=== PATIENT | female | born 1985 | race African-American/Black ===

== ENCOUNTER 2017-06-25 10:18 | Emergency (ER) | payer MEDICAID ==
[~2017-06-25] VITALS: Ht 162.6 cm; Wt 127.1 kg
[~2017-06-25 10:18] MED LIST: IBUP-44 PO
[2017-06-25 10:28] VITALS: BP 151/119
--- NOTE | 2017-06-25 10:33 | NUR ---
PT AA&OX4, EVEN AND STEADY GAIT; RR EVEN/UNLABORED; PT TO LOBBY AWAITING OPEN BED.
[2017-06-25 11:55] LABS: BASOPHILS # (AUTO) 0.1 K/uL (0.00-0.22); BASOPHILS % (AUTO) 2.6 % (0.0-2.0); EOSINOPHILS # (AUTO) 0.1 K/uL (0-0.4); EOSINOPHILS % (AUTO) 2.3 % (0.0-4.0); HEMATOCRIT 38.4 % (36-48); HEMOGLOBIN 12.4 g/dL (12.0-16.0); LYMPHOCYTES # (AUTO) 1.3 K/uL (2.5-16.5); LYMPHOCYTES % (AUTO) 24.8 % (20.5-51.1); MEAN CORPUSCULAR HEMOGLOBIN 26 pg (27-31); MEAN CORPUSCULAR HGB CONC 32 g/dL (33-37); MEAN CORPUSCULAR VOLUME 81 fL (80-94); MONOCYTES # (AUTO) 0.5 K/uL (0.8-1.0); NEUTROPHILS # (AUTO) 3.3 K/uL (1.8-7.7); NEUTROPHILS % (AUTO) 60.3 % (42.2-75.2); PLATELET COUNT (AUTO) 288 K/uL (140-450); RED BLOOD CELL COUNT(AUTO) 4.76 MIL/uL (4.20-5.40); RED CELL DISTRIBUTION WIDTH 15.2 % (11.6-13.7); WHITE BLOOD COUNT (AUTO) 5.3 K/uL (4.8-10.8)
--- NOTE | 2017-06-25 15:08 | NUR ---
PATIENT TO BED 10 AT THIS TIME,
[2017-06-25] MEDS ORDERED: KETOROLAC 60 MG/2 ML VIAL IM ONE (15:20)
--- NOTE | 2017-06-25 15:26 | NUR ---
PATIENT BIB SELF C/O PELVIC PAIN X TODAY. PT STATES " I HAVE FIBROIDS AND IT'S THE SAME PAIN".PT STATES PAIN RADIATES TO THE BACK AND COMES AND GO; SKIN IS PINK/WARM/DRY; AAOX4 WITH EVEN AND STEADY GAIT; LUNGS CLEAR BL; HR EVEN AND REGULAR; PT DENIES ANY FEVER, CP, SOB, OR COUGH AT THIS TIME; PATIENT STATES PAIN OF 10/10 AT THIS TIME;PATIENT POSITIONED FOR COMFORT; HOB ELEVATED; BEDRAILS UP X2; BED DOWN. ER MD MADE AWARE OF PT STATUS.
[2017-06-25 16:23] VITALS: BP 148/92
== END 2017-06-25 16:23 | disposition home or self-care (01) ==
LOC: MED 10:18
DX: D25.9 Leiomyoma of uterus, unspecified (principal); I10 Essential (primary) hypertension; F17.200 Nicotine dependence, unspecified, uncomplicated
CPT/HCPCS: 36415; 81002; 81025; 84702; 85025; 86900; 86901; 96372; 99284; J1885

== ENCOUNTER 2018-02-21 15:29 | Emergency (ER) | payer MEDICAID ==
[~2018-02-21] VITALS: Ht 162.6 cm; Wt 133.8 kg
[2018-02-21 15:35] VITALS: BP 174/91
--- NOTE | 2018-02-21 15:42 | NUR ---
PT AMBULATED TO ER LOBBY WAITING FOR OPEN ER BED.
--- NOTE | 2018-02-21 16:14 | NUR ---
PT WHEELCHAIRED TO ED ROOM 3 REPORT TO MARIPOSA AYALA. URINE BEING OBTAINED.
--- NOTE | 2018-02-21 16:20 | NUR ---
32/F PRESENT TO ER C/O 04/04 CONSTANT PELVIC PAIN x TODAY PROGRESSIVELY GETTING WORSE. PT STATES SHE WAS DIAGNOSED UTERINE FIBROIDS 3 YEARS AGO AND IT HAS BEEN GETTING WORSE LATELY, STATES IT REALLY GOT BAD THIS MORNING. PT DENIES N/V/D BUT HAS CONSTIPATION. PT IS AOX4 TO PERSON, PLACE, SITUATION, AND TIME. RR ARE EVEN AND UNLABORED. PATIENT CHANGED INTO GOWN. AWAITING ER MD BOBO. ALL NEEDS MET AT THIS TIME. WILL CONTINUE TO MONITOR.
--- NOTE | 2018-02-21 16:20 | NUR ---
ALSO PATIENT DENIES ANY VAGINAL BLEEDING, VAGINAL DISCHARGE, OR URINARY COMPLAINTS.
[2018-02-21] MEDS ORDERED: KETOROLAC 30 MG/ML VIAL IVP ONE (17:55)
[2018-02-21] MEDS ORDERED: ONDANSETRON 4 MG/2 ML VIAL IVP ONE (17:55)
[2018-02-21] MEDS ORDERED: MORPHINE SULFATE 10 MG/ML SYR IVP ONE (17:55)
[2018-02-21] MEDS ORDERED: NACL 0.9% 1,000 ML IV SCH (17:55)
--- NOTE | 2018-02-21 17:56 | NUR ---
notified er md patient is crying due to pain. awaiting new orders.
[2018-02-21] MEDS ORDERED: MORPHINE SULFATE 4 MG/ML SYR ONE (18:12)
[2018-02-21 18:20] LABS: BASOPHILS # (AUTO) 0.1 K/uL (0.00-0.22); BASOPHILS % (AUTO) 0.7 % (0.0-2.0); EOSINOPHILS # (AUTO) 0.1 K/uL (0-0.4); EOSINOPHILS % (AUTO) 1.4 % (0.0-4.0); HEMATOCRIT 39.2 % (36-48); HEMOGLOBIN 12.6 g/dL (12.0-16.0); LYMPHOCYTES # (AUTO) 2.2 K/uL (2.5-16.5); MEAN CORPUSCULAR HEMOGLOBIN 26 pg (27-31); MEAN CORPUSCULAR HGB CONC 32 g/dL (33-37); MONOCYTES # (AUTO) 0.7 K/uL (0.8-1.0); MONOCYTES % (AUTO) 10.3 % (1.7-9.3); NEUTROPHILS # (AUTO) 4.1 K/uL (1.8-7.7); NEUTROPHILS % (AUTO) 57.6 % (42.2-75.2); PLATELET COUNT (AUTO) 297 K/uL (140-450); RED BLOOD CELL COUNT(AUTO) 4.85 MIL/uL (4.20-5.40); RED CELL DISTRIBUTION WIDTH 15.8 % (11.6-13.7); WHITE BLOOD COUNT (AUTO) 7.2 K/uL (4.8-10.8)
--- NOTE | 2018-02-21 18:30 | NUR ---
pt to ct evelio seymour accompanied by radiology specialist
--- NOTE | 2018-02-21 18:35 | NUR ---
PT RETURNED FROM CT VIA GURNEY BACK TO RM 3 WITHOUT INCIDENT
[2018-02-21 18:38] LABS: APPEARANCE,URINE CLEAR (CLEAR); BILIRUBIN,URINE NEGATIVE (NEGATIVE); BLOOD, URINE NEGATIVE (NEGATIVE); COLOR,URINE YELLOW (YELLOW); LEUKOCYTE ESTERASE ,URINE NEGATIVE (NEGATIVE); NITRITE, URINE NEGATIVE (NEGATIVE); UGLUCOSE NEGATIVE (NEGATIVE)
[2018-02-21 18:44] LABS: ANION GAP 9.2 (8-16); CARBON DIOXIDE 29.7 mmol/L (21-32); CREATININE 0.7 mg/dL (0.6-1.3); POTASSIUM 3.9 mmol/L (3.5-5.1)
[2018-02-21 18:50] LABS: ALBUMIN 3.6 g/dL (3.4-5.0); TOTAL BILIRUBIN 0.4 mg/dL (0.0-1.0)
--- NOTE | 2018-02-21 19:10 | NUR ---
Pt report given to Sharri AYALA. Transfer of care at this time.
--- NOTE | 2018-02-21 19:15 | NUR ---
PT LAYING IN BED, VSS, PT STATES SHE HAS PAIN RELIEF. WILL CONTINUE TO MONITOR.
--- NOTE | 2018-02-21 20:00 | NUR ---
PT TO BE DISCHARGED BUT UNABLE TO FIND A RIDE AT THIS TIME, HARINDER CALL HOUSE SUP. FOR TAXI VOUCHER.
--- NOTE | 2018-02-21 20:19 | NUR ---
PT MOVED TO CHAIR E.
--- NOTE | 2018-02-21 20:41 | NUR ---
Patient discharged with v/s stable. Written and verbal after care instructions given and explained. Patient alert, oriented and verbalized understanding of instructions. Ambulatory with steady gait w/ cane. All questions addressed prior to discharge. ID band removed. Patient advised to follow up with PMD. Rx of norco, naprosyn given. Patient educated on indication of medication including possible reaction and side effects. Opportunity to ask questions provided and answered. pt to wait in chair e until taxi arrives.
[2018-02-21 20:42] VITALS: BP 143/80
--- NOTE | 2018-02-21 20:47 | NUR ---
PT REQUESTS TO GO TO CAR TO GET ITEMS BEFORE SHE LEAVES, EMT TO ESCORT HER TO CAR.
--- NOTE | 2018-02-21 20:50 | NUR ---
PT REQUESTS TO WAIT IN LOBBY, WILL CONTINUE TO MONITOR.
--- NOTE | 2018-02-21 20:50 | NUR ---
REENA NURSE NOTIFIED OF PT MOVING TO ER LOBBY, WILL CONTINUE TO MONITOR.
--- NOTE | 2018-02-21 21:00 | NUR ---
PT IN ER LOBBY, ON PHONE, PT TO WAIT FOR TAXI.
--- NOTE | 2018-02-21 21:40 | NUR ---
PT NOT FOUND IN ER LOBBY OR OUTSIDE, LAST SEEN PT WAS SEEN IN STABLE CONDITION.
--- NOTE | 2018-02-21 22:03 | NUR ---
PER EMT , PT CAR NOT FOUND TO BE IN ER PARKING LOT . CHARGE NURSE AND ER MD MADE AWARE.
== END 2018-02-21 20:42 | disposition home or self-care (01) ==
LOC: MED 15:29
DX: K76.0 Fatty (change of) liver, not elsewhere classified (principal)
CPT/HCPCS: 36415; 74176; 80053; 81003; 81025; 83690; 85025; 96361; 96374; 96375; 99285; J1885; J2270; J2405; J7030

== ENCOUNTER 2018-06-15 15:51 | Emergency (ER) | payer MEDICAID ==
[~2018-06-15] VITALS: Ht 162.6 cm; Wt 129.0 kg
[2018-06-15 16:00] VITALS: BP 146/112
--- NOTE | 2018-06-15 16:02 | NUR ---
wheel chair assisted to bed 3
--- NOTE | 2018-06-15 16:10 | NUR ---
pt arrived to ed w/ c/o chronic sharp pelvic pain agravated on urination or defecation; previously seen for the same s/s on 05/30/2017, 06/25/2017, 07/01/2017, 02/21/2018. 9/10 sharp pain that is intermittent. denies any n/v/d. denies any fever or chills. rr even and unlabored. denies any sob , garcia, cp. safety precautions implemented. will continue to monitor.
[2018-06-15 16:57] VITALS: BP 150/98
--- NOTE | 2018-06-15 16:57 | NUR ---
Patient discharged with v/s stable. Written and verbal after care instructions given and explained. Patient alert, oriented and verbalized understanding of instructions. Ambulatory with steady gait. All questions addressed prior to discharge. ID band removed. Patient advised to follow up with PMD. Rx of tramadol 50mg, ibuprofen 400mg given. Patient educated on indication of medication including possible reaction and side effects. Opportunity to ask questions provided and answered.
== END 2018-06-15 16:57 | disposition home or self-care (01) ==
LOC: MED 15:51
DX: D25.9 Leiomyoma of uterus, unspecified (principal); I10 Essential (primary) hypertension; F17.200 Nicotine dependence, unspecified, uncomplicated; Z79.899 Other long term (current) drug therapy
CPT/HCPCS: 81002; 81025; 99283